=== PATIENT | female | born 1935 | race Caucasian/White ===

== ENCOUNTER 2017-11-20 11:26 | Outpatient (CLI) | payer MEDICARE ==
--- NOTE | 2017-11-20 13:40 | RAD ---
THORACIC SPINE THREE VIEWS: History: Back pain. Comparison: 12-18-16 FINDINGS: No acute fracture. No malalignment. There are dense calcifications of the aorta. Paraspinal soft tissues are unremarkable. IMPRESSION: No displaced fracture or malalignment. POS: JULIEN
== END 2017-11-20 11:27 | disposition home or self-care (01) ==
LOC: RAD-FRANK 11:26
PROVIDERS: ATTEND Nurse Practitioner Family
DX: M54.6 Pain in thoracic spine (principal)
CPT/HCPCS: 72072

== ENCOUNTER 2018-03-27 12:48 | Outpatient (CLI) | payer MEDICARE ==
--- NOTE | 2018-03-27 14:17 | ULT ---
RIGHT LOWER EXTREMITY VENOUS ULTRASOUND WITH DOPPLER: History Pain. COMPARISON: None. TECHNIQUE: Rios scale, color flow, Doppler imaging, and spectral waveform analysis of the right lower extremity system. FINDINGS: There is compressibility, presence of flow, and augmentation of the common femoral vein, femoral vein , and popliteal vein. There is flow in the greater saphenous vein, profunda vein, and posterior tibi al vein. IMPRESSION: No evidence of thrombus in the right lower extremity deep venous system. POS: JULIEN
--- NOTE | 2018-03-27 14:29 | ULT ---
RIGHT LOWER EXTREMITY ARTERIAL ULTRASOUND WITH DOPPLER: HISTORY: Right leg pain with exercise, rest. Burning sensation. COMPARISON: Rios scale, color flow, Doppler imaging with spectral waveform analysis was performed of the right lo wer extremity arterial system. 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 There is monophasic flow throughout the entire visualized right lower extremity arterial system. Common femoral artery 83.4 cm/s Profunda femoral artery 91.0 cm/s SFA proximal 52.2 cm/s SFA mid 41.2 cm/s SFA distal 52.7 cm/s Popliteal artery 31.1 cm/s Anterior tibial artery 17.6 cm/s Posterior tibial artery unable to obtain. Dorsalis pedis artery 30.9 cm/s IMPRESSION: Monophasic flow in the right lower extremity. If there is concern for peripheral artery disease and a consultation with the cardiovascular surgeon is recommended. POS: JULIEN
== END 2018-03-27 12:49 | disposition home or self-care (01) ==
LOC: ULT 12:48
PROVIDERS: ATTEND Nurse Practitioner Family
DX: M79.604 Pain in right leg (principal)
CPT/HCPCS: 93923

== ENCOUNTER 2019-03-24 15:12 | Outpatient (CLI) | payer MEDICARE ==
--- NOTE | 2019-03-24 15:30 | RAD ---
RIGHT ANKLE 3 VIEWS: Date: 03/24/19 HISTORY: Ankle pain. FINDINGS: There is mild soft tissue swelling noted. No evidence of fracture. IMPRESSION: No acute osseous abnormality. POS: OFF
== END 2019-03-24 15:13 | disposition home or self-care (01) ==
LOC: RAD-FRANK 15:12
PROVIDERS: ATTEND Nurse Practitioner Family
DX: L03.90 Cellulitis, unspecified (principal)